=== PATIENT | female | born 1945 | race Caucasian/White ===

== ENCOUNTER 2023-11-25 06:26 | Day surgery (SDC) | payer OTHER ==
[2023-11-24 11:49] VITALS: BMI 14.6
[~2023-11-25 06:26] MED LIST: EPINEPHrine 0.3 MG in Ophthalmic Irrigation Solution 500 ML IRR SCH
[2023-11-25] MEDS ORDERED: Cyclopentolate 1% Opth Drop 2 ML BOT ONE (06:39)
[2023-11-25] MEDS ORDERED: PHENYLephrine 2.5% Ophth Soln 15 ml Bottle ONE (06:39)
[2023-11-25] MEDS ORDERED: Norepinephrine 4 MG/4 ML VIAL ONE (08:07)
[2023-11-25] MEDS ORDERED: Famotidine/PF 20 mg/2ml Vial ONE (08:07)
[2023-11-25] MEDS ORDERED: Etomidate 40 MG (20 mL) VIAL ONE (08:09)
[2023-11-25] MEDS ORDERED: Maxitrol 0.1% Opth Oint 3.5 GM TUBE ONE (08:18)
[2023-11-25] MEDS ORDERED: Lidocaine 1% PF 5 ML VIAL ONE (08:18)
[2023-11-25] MEDS ORDERED: Bupivacaine 0.75% 10 ML VIAL ONE (08:18)
[2023-11-25] MEDS ORDERED: PROPOFOL 200 MG/20 ML VIAL ONE (08:18)
[2023-11-25] MEDS ORDERED: CEFAZOLIN 1 GM VIAL ONE (08:18)
[2023-11-25] MEDS ORDERED: Lidocaine 4% PF 5 ML AMP ONE (08:18)
[2023-11-25] MEDS ORDERED: Triamcinolone 40 MG/ML VIAL ONE (08:18)
[2023-11-25] MEDS ORDERED: fentaNYL 50 mcg/mL 1 mL Vial ONE (08:20)
[2023-11-25] MEDS ORDERED: Ondansetron PF 4 MG/2 ML Vial ONE (08:39)
== END 2023-11-25 11:55 | disposition home or self-care (01) ==
LOC: SDC 06:26
PROVIDERS: ATTEND Ophthalmology Retina Specialist
PROC: 08T43ZZ Resection of Right Vitreous, Percutaneous Approach (ICD-10-PCS; principal; 2023-11-25)
DX: H40.51X4 Glaucoma secondary to other eye disorders, right eye, indeterminate stage (principal); H34.8111 Central retinal vein occlusion, right eye, with retinal neovascularization; E11.39 Type 2 diabetes mellitus with other diabetic ophthalmic complication
CPT/HCPCS: 66180; 67040; C1762; C1783; J0171; J0690; J2405; J2704; J3010; J3301; J3490 ×2